=== PATIENT | female | born 1990 | race Caucasian/White ===

== ENCOUNTER 2016-12-17 12:00 | Inpatient (IN) | payer OTHER ==
[~2016-12-17] VITALS: Ht 170.2 cm; Wt 59.0 kg
--- NOTE | 2016-12-17 13:20 | NUR ---
PREADMISSION NOTE Pt is a 26 year old [facility]TOH, Cocaine, Barbiturates and Benzodiazepines, Pt was intoxicated but stable enough to get admitted, pt denies any food or drug allergies requested full code and is on a regular diet, her initial vitals were as followed BP: 132/94mmHg, Pulse 98bpm, RR:19, O2:99%, denied any pain at the moment, Temp: 98.3F. She is currently drinking up to 10 bottles of wine on a daily basis, and has been doing so at this rate for > 12 mo. Last drink was just prior to admission. She also reports using Xanax episodically, up to 20mg over a 24 hr period, several times a week. She also reports using cocaine, 1-2 g nasally on a daily basis x 2 weeks. pt educated about what to expect during her stay, pt verbalized adequate understanding. pt denies smoking cigarettes but states that she "vapes" Pt denied any PMH and she did not bring any home medications. MD notified and aware of new admission, admitting orders placed, pt has provided urine for her initial UDS. all needs met will proceed with admission when pt comes up on the unit from intake.
[2016-12-17] MEDS ORDERED: IBUPROFEN 600 MG TABLET PO PRN (13:30)
[2016-12-17] MEDS ORDERED: DIAZEPAM 10 MG TABLET PO PRN ×2 (13:30)
[2016-12-17] MEDS ORDERED: MAG HYDROX/AL HYDROX/SIMETH 30 ML LIQUID UDC PO PRN (13:30)
[2016-12-17] MEDS ORDERED: MIRALAX 17 GM POWD.PACK PO PRN (13:30)
[2016-12-17] MEDS ORDERED: CLONIDINE HCL 0.1 MG TABLET PO PRN (13:30)
[2016-12-17] MEDS ORDERED: DICYCLOMINE HCL 20 MG TABLET PO PRN (13:30)
[2016-12-17] MEDS ORDERED: ACETAMINOPHEN 325 MG TABLET PO PRN (13:30)
[2016-12-17] MEDS ORDERED: HYDROXYZINE PAMOATE 25 MG CAPSULE PO PRN (13:30)
[2016-12-17] MEDS ORDERED: LOPERAMIDE HCL 2 MG CAPSULE PO PRN ×2 (13:30)
[2016-12-17] MEDS ORDERED: ONDANSETRON 4 MG/2 ML VIAL IM PRN (13:30)
[2016-12-17] MEDS ORDERED: MAGNESIUM HYDROXIDE 30 ML LIQUID UDC PO PRN (13:30)
[2016-12-17] MEDS ORDERED: diphenhydrAMINE 50 MG CAPSULE PO PRN (13:30)
[2016-12-17] MEDS ORDERED: LORAZEPAM 2 MG/1 ML VIAL IM PRN (13:30)
[2016-12-17] MEDS ORDERED: DIAZEPAM 5 MG TABLET PO PRN (13:30)
[2016-12-17] MEDS ORDERED: ONDANSETRON ODT 4 MG TAB.RAPDIS SL PRN (13:30)
[2016-12-17 14:12] LABS: *URINE HCG, QUAL NEGATIVE (NEGATIVE)
[2016-12-17 14:22] LABS: *AMPHETAMINE, URINE NEGATIVE (NEGATIVE); *BARBITURATE, URINE POSITIVE (NEGATIVE); *CANNABINOID, URINE POSITIVE (NEGATIVE); *COCCAINE, URINE POSITIVE (NEGATIVE); *OPIATE, URINE NEGATIVE (NEGATIVE); *PHENCYCLIDINE SCREEN,URINE NEGATIVE (NEGATIVE)
[2016-12-17] MEDS ORDERED: THIAMINE HCL 200 MG/2 ML VIAL IM ONE (15:00)
[2016-12-17] MEDS: GABAPENTIN 300 MG CAPSULE PO SCH (15:00)
[2016-12-17 15:13] LABS: BASOPHILS % (AUTO) 0.5 % (0.0-2.0); EOSINOPHILS % (AUTO) 0.4 % (0.0-7.0); HEMATOCRIT 42.5 % (37-47); HEMOGLOBIN 13.8 G/DL (12.0-16.0); LYMPHOCYTES # (AUTO) 2.9 K/UL (0.8-4.8); LYMPHOCYTES % (AUTO) 38.4 % (20.5-51.5); MEAN CORPUSCULAR HEMOGLOBIN 29.3 UUG (27.0-31.0); MEAN CORPUSCULAR HGB CONC 32 g/dL (32.0-37.0); MEAN CORPUSCULAR VOLUME 90.5 FL (81.0-99.0); MONOCYTES # (AUTO) 0.5 K/UL (0.1-1.30); MONOCYTES % (AUTO) 6.2 % (0.0-11.0); NEUTROPHILS # (AUTO) 4.1 K/UL (1.8-8.9); NEUTROPHILS % (AUTO) 54.5 % (38.5-71.5); PLATELET COUNT (AUTO) 274 K/UL (150-450); RED CELL DISTRIBUTION WIDTH 13.9 % (11.5-14.5); WHITE BLOOD COUNT (AUTO) 7.5 K/UL (4.0-11.2)
[2016-12-17 15:17] LABS: ALBUMIN 4.2 g/dL (3.4-5.0); BILIRUBIN,TOTAL 0.4 mg/dL (0.2-1.0); CALCIUM 8.6 mg/dL (8.5-10.1); CREATININE 0.9 mg/dL (0.6-1.3); MAGNESIUM 2.1 mg/dL (1.8-2.4); POTASSIUM 3.6 mmol/L (3.5-5.1); TOTAL PROTEIN, SERUM 7.8 g/dL (6.4-8.2)
[2016-12-17 15:29] LABS: THYROID STIMULATING HORMONE 0.352 mIU/mL (0.358-3.740)
[2016-12-17 15:45] LABS: HIV-1 p24 ANTIGEN NON REACTIVE (NONREACTIVE); HIV-1/2 ANTIBODY NON REACTIVE (NONREACTIVE)
--- NOTE | 2016-12-17 19:23 | NUR ---
End Of Shift Endorsed report to fast food shift lead nurse. Pt is a 26 year old [facility]TOH, Cocaine, Barbiturates and Benzodiazepines, pt denies any food or drug allergies requested full code and is on a regular diet fall and seizure precautions, She is currently drinking up to 10 bottles of wine on a daily basis, and has been doing so at this rate for > 12 mo. Last drink was just prior to admission. She also reports using Xanax episodically, up to 20mg over a 24 hr period, several times a week. She also reports using cocaine, ~ 1-2 g nasally on a daily basis x 2 weeks. Pt has been sleeping ever since arriving on the unit and requested not to be disturbed. Her last CIWA 3 at 1600, No PRN medication given during my shift. Patient encouraged to attend group therapies/sessions to learn new coping skills to recent relapse, patient denies SI/HI. Safety measures in place. Call light kept within reach. Patient endorsed to fast food shift lead nurse, all pertinent information discussed.
[2016-12-17 20:00] VITALS: BP 117/68
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
[2016-12-17] MEDS ORDERED: GABAPENTIN 300 MG CAPSULE PO SCH (21:00)
--- NOTE | 2016-12-17 21:35 | NUR ---
PRN Administration CIWA 10 - tremors visible, skin sweaty/clammy, anxiety/irritability noted, pt reports headache - feeling lightheaded, reports chills. Milk of Magnesia 30ml administered for reports of constipations. Safety measures in place. Will continue to monitor.
--- NOTE | 2016-12-17 22:35 | NUR ---
PRN Reassessment CIWA 8, pt continues with visible tremors, clammy/sweaty skin with mild chills. Pt is in bed, no reports of a bowel movement as of yet. respirations even/unlabored. Needs met, safety measures in place. Will continue to monitor.
[2016-12-17] MEDS ORDERED: QUET100T PO (23:56)
[2016-12-18] VITALS: BP 117/53
--- NOTE | 2016-12-18 | NUR ---
Vital Signs BP 117/53, pulse 60, respirations 16, SpO2 97%, temp 98, no pain 0/10 CIWA deferred d/t sleeping, to assess while pt is awake as ordered. Safety measures in place. Will continue to monitor.
[2016-12-18 04:00] VITALS: BP 111/54
--- NOTE | 2016-12-18 04:00 | NUR ---
Vital Signs BP 111/54, pulse 70, respirations 14, SpO2 100%, temp 98, no pain 0/10 CIWA deferred d/t sleeping, to assess while pt is awake as ordered. Safety measures in place. Will continue to monitor.
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
[2016-12-18 08:00] VITALS: BP 114/66
[2016-12-18] MEDS: GABAPENTIN 300 MG CAPSULE PO SCH (09:00)
[2016-12-18] MEDS ORDERED: FOLIC ACID 1 MG TABLET PO SCH (09:00)
[2016-12-18] MEDS ORDERED: TUBERCULIN,PURIF.PROT.DERIV. 5 TU/0.1 ML TEST ID ONE (09:00)
[2016-12-18] MEDS ORDERED: MULTIVITAMINS,THERAPEUTIC TABLET PO SCH (09:00)
[2016-12-18] MEDS ORDERED: 5 DAY TAPER VALIUM-SERENITY PROTOCOL PO PRN (09:00)
[2016-12-18] MEDS ORDERED: DIAZEPAM 10 MG TABLET PO SCH (09:00)
[2016-12-18] MEDS ORDERED: THIAMINE HCL 100 MG TABLET PO SCH (09:00)
[2016-12-18] MEDS ORDERED: DOCUSATE SODIUM 250 MG CAPSULE PO SCH (09:00)
--- NOTE | 2016-12-18 09:50 | NUR ---
Refused medication Pt refused his scheduled morning medications which included Valium 10mg. Pt educated about the importance of medication compliance and the consequences of not taking the medications, pt verbalized understanding but still refused the medication. MD contacted and notified. all needs met will continue to monitor.
--- NOTE | 2016-12-18 10:45 | NUR ---
AMA NOTE Pt left AMA, Pt refused to comply with treatment. Pt educated about the risks and consequences of leaving AMA, pt verbalized understanding but was adamant about leaving. Multiple staff members including doctors, patient advocates and nurses attempted to reason with pt without any success. VS WNL, skin intact pt denied any suicidal or homicidal ideations. Pt's psychiatrist and MD were notified and aware. Pt was given a list of community resources , AMA forms explained and signed. all belongings returned to Pt. Pt left facility AMA on 10/15/16 at 11:36. Addendum: 12/18/16 at 1051 by PACO WARE RN Incorrect AMA Note
--- NOTE | 2016-12-18 10:46 | NUR ---
AMA NOTE Pt left AMA, Pt refused to comply with treatment. Pt educated about the risks and consequences of leaving AMA, pt verbalized understanding but was adamant about leaving. Multiple staff members including doctors, patient advocates and nurses attempted to reason with pt without any success. VS WNL, skin intact pt denied any suicidal or homicidal ideations. Pt's psychiatrist and MD were notified and aware. Pt was given a list of community resources , AMA forms explained and signed. All belongings returned to Pt. Pt left facility AMA on 12/18/16 at 10:30.
[2016-12-19] MEDS ORDERED: DIAZEPAM 10 MG TABLET PO SCH (09:00)
[2016-12-20 03:06] LABS: HCV AB <0.1 s/co ratio (0.0-0.9); HEPATITIS B CORE AB, IgM Negative (Negative); HEPATITIS B SURFACE AG Negative (Negative)
[2016-12-20] MEDS ORDERED: DIAZEPAM 5 MG TABLET PO SCH (09:00)
[2016-12-21] MEDS ORDERED: DIAZEPAM 5 MG TABLET PO SCH (09:00)
[2016-12-22] MEDS ORDERED: DIAZEPAM 5 MG TABLET PO SCH (09:00)
== END 2016-12-18 10:40 | disposition left against medical advice (07) | DRG 894 ==
LOC: SRC 12:46
PROVIDERS: ADMIT Internal Medicine; ATTEND Internal Medicine
PROC: HZ2ZZZZ Detoxification Services for Substance Abuse Treatment (ICD-10-PCS; principal; 2016-12-17)
DX: F10.220 Alcohol dependence with intoxication, uncomplicated (principal); F14.220 Cocaine dependence with intoxication, uncomplicated; Y90.9 Presence of alcohol in blood, level not specified; F13.10 Sedative, hypnotic or anxiolytic abuse, uncomplicated
CPT/HCPCS: 80307; 80345; 80346; 80349; 80353; 83690; 83735; 84443; 84703; 85025; 86580; 86592; 86705; 86803; 87340; 87806; A4663; G6040-TC